=== PATIENT | female | born 1965 | race Caucasian/White ===

== ENCOUNTER 2018-07-16 09:34 | Day surgery (SDC) | payer MEDICARE, MEDICAID ==
[2018-07-12 14:52] VITALS: BP 172/84
[~2018-07-16] VITALS: Ht 167.6 cm; Wt 70.0 kg
[~2018-07-16 09:34] MED LIST: BUPIVACAINE/PF 0.25% ONE; EPINEPHRINE 1 MG/ML, 1ML ONE; LISI1TAB7 PO; LORA1TAB PO; NEOMY/POLYMYXIN B GU IRR. 1 ML ONE
[2018-07-16] MEDS ORDERED: LACTATED RINGERS 1,000 ML IV SCH (09:56)
[2018-07-16] MEDS ORDERED: LIDOCAINE-MPF 1%, 2ML INFIL ONE (10:00)
[2018-07-16] MEDS ORDERED: ACETAMINOPHEN 500 MG TABLET PO ONE (10:00)
[2018-07-16] MEDS ORDERED: DIAZEPAM 5 MG TABLET PO ONE (10:00)
[2018-07-16] MEDS ORDERED: SCOPOLAMINE PATCH, 1.5MG PATCH.TD72 TD ONE (10:00)
[2018-07-16 10:13] VITALS: BP 172/84
[2018-07-16] MEDS ORDERED: HYDR-3237 PO (10:17)
[2018-07-16] MEDS ORDERED: INSULIN SINGLE DOSE, ER SQ-INSULIN ONE (10:54)
[2018-07-16 11:00] LABS: ALANINE AMINOTRANSFERASE 21 U/L (12-78); ALBUMIN 3.9 g/dL (3.4-5.0); ANION GAP 7 mmol/L (5-15); CALCIUM 9.2 mg/dL (8.5-10.1); CHLORIDE 105 mmol/L (98-107); CREATININE 0.66 mg/dL (0.55-1.02)
[2018-07-16] MEDS ORDERED: INSULIN REGULAR 100 UNITS/ML, 3ML VIAL IVPush ONE (11:00)
[2018-07-16 11:02] LABS: ALKALINE PHOSPHATASE 103 U/L (45-117); BILIRUBIN,TOTAL 0.4 mg/dL (0.2-1.0); TOTAL PROTEIN 7.4 g/dL (6.4-8.2)
[2018-07-16] MEDS ORDERED: MIDAZOLAM 1 MG/ML, 2ML ONE (12:01)
[2018-07-16] MEDS ORDERED: FENTANYL PF 100 MCG/2ML ONE ×3 (12:01→13:23)
[2018-07-16] MEDS ORDERED: PROPOFOL 10 MG/ML, 20ML ONE (12:05)
[2018-07-16] MEDS ORDERED: ONDANSETRON 2MG/ML, 2ML ONE ×2 (12:05→12:24)
[2018-07-16] MEDS ORDERED: DEXAMETHASONE 4 MG/ML, 1ML ONE ×2 (12:05→12:24)
[2018-07-16] MEDS ORDERED: CEFAZOLIN 1,000 MG ONE ×2 (12:24)
[2018-07-16] MEDS ORDERED: FENTANYL PF 100 MCG/2ML IV PRN (12:30)
[2018-07-16] MEDS ORDERED: EPHEDRINE 50 MG/ML, 1ML IVPush PRN (12:30)
[2018-07-16] MEDS ORDERED: ONDANSETRON ODT 8 MG PO PRN (12:30)
[2018-07-16] MEDS ORDERED: DIAZEPAM 5 MG/ML, 2ML IVPush PRN (12:30)
[2018-07-16] MEDS ORDERED: HYDROmorphone 2 MG/ML, 1ML IVPush PRN (12:30)
[2018-07-16] MEDS ORDERED: ALBUTEROL SULFATE 2.5 MG/3 ML NPPB PRN (12:30)
[2018-07-16] MEDS ORDERED: LABETALOL 5MG/ML, 20ML IV PRN (12:30)
[2018-07-16] MEDS ORDERED: MIDAZOLAM 1 MG/ML, 2ML IV PRN (12:30)
[2018-07-16] MEDS ORDERED: PROMETHAZINE 25 MG/ML, 1ML IV PRN (12:30)
[2018-07-16] MEDS ORDERED: MORPHINE SULFATE 4 MG/ML, 1ML IVPush PRN (12:30)
[2018-07-16] MEDS ORDERED: hydrALAzine 20 MG/ML, 1ML IV PRN (12:30)
[2018-07-16] MEDS ORDERED: HALOPERIDOL 5 MG/ML IV PRN (12:30)
[2018-07-16] MEDS ORDERED: PROMETHAZINE 12.5 MG SUPP PR PRN (12:30)
[2018-07-16] MEDS ORDERED: MEPERIDINE/PF 25MG/0.5ML IVPush PRN (12:30)
[2018-07-16] MEDS ORDERED: OXYcodone 5 MG/5 ML ORAL.SOL UDC PO PRN (12:30)
[2018-07-16] MEDS ORDERED: ONDANSETRON 2MG/ML, 2ML IV PRN (12:30)
[2018-07-16] MEDS ORDERED: OXYcodone 5 MG/5 ML ORAL.SOL UDC ONE (13:23)
[2018-07-16] MEDS ORDERED: KETOROLAC 30 MG/1 ML ONE (13:29)
[2018-07-16] MEDS ORDERED: KETOROLAC 30 MG/1 ML IVPush ONE (13:30)
== END 2018-07-16 15:30 | disposition home or self-care (01) ==
LOC: OUT 09:34
PROVIDERS: ATTEND Obstetrics & Gynecology Female Pelvic Medicine and Reconstructive Surgery
DX: N81.89 Other female genital prolapse (principal); N39.46 Mixed incontinence; N81.5 Vaginal enterocele; K21.9 Gastro-esophageal reflux disease without esophagitis; E11.9 Type 2 diabetes mellitus without complications; I10 Essential (primary) hypertension; F17.210 Nicotine dependence, cigarettes, uncomplicated; Z87.39 Personal history of other diseases of the musculoskeletal system and connective tissue; Z90.49 Acquired absence of other specified parts of digestive tract; Z90.710 Acquired absence of both cervix and uterus; Z98.890 Other specified postprocedural states; Z91.040 Latex allergy status; Z79.84 Long term (current) use of oral hypoglycemic drugs
CPT/HCPCS: 36415; 57265; 57282; 57288; 80053; 82962; 93005; C1771; J0171; J0690; J1100; J1815; J1885; J2250; J2405; J2704; J3010; J3490; J7120